=== PATIENT | female | born 1930 | race Hispanic/Latino ===

== ENCOUNTER 2018-06-26 15:41 | Emergency (ER) | payer OTHER ==
[2018-06-26] MEDS ORDERED: HYDROCODONE/ACETAMINOPHEN 10/325 MG TAB ONE (16:31)
[2018-06-26] MEDS ORDERED: ONDANSETRON ODT 4 MG TAB ONE (16:31)
== END 2018-06-26 18:53 | disposition home or self-care (01) ==
LOC: EDH 15:41
DX: S43.004A Unspecified dislocation of right shoulder joint, initial encounter (principal); I10 Essential (primary) hypertension; W01.0XXA Fall on same level from slipping, tripping and stumbling without subsequent striking against object, initial encounter; Y93.01 Activity, walking, marching and hiking; Y92.098 Other place in other non-institutional residence as the place of occurrence of the external cause; Y99.8 Other external cause status
CPT/HCPCS: 23650; 73030